=== PATIENT | female | born 1990 | race Caucasian/White ===

== ENCOUNTER → 2016-09-20 | Outpatient (REF) | payer OTHER | END | disposition home or self-care (01) | LOC: M LAB REF 11:55 | PROVIDERS: ATTEND Physician Assistant | DX: R30.0 Dysuria (principal) ==

== ENCOUNTER → 2019-01-03 | Outpatient (REF) | payer OTHER | LOC: M LAB REF 12:51 | PROVIDERS: ATTEND Advanced Practice Midwife | DX: O09.212 Supervision of pregnancy with history of pre-term labor, second trimester (principal); Z3A.00 Weeks of gestation of pregnancy not specified ==

== ENCOUNTER → 2019-04-07 | Outpatient (CLI) | payer OTHER ==
[~2019-04-07] VITALS: Ht 157.5 cm; Wt 85.6 kg
[~2019-04-07] MED LIST: ACET-683 PO; IBUP80TA PO; LEVO75TA4 PO; PNVTAB4 PO; [UNRECOGNIZED DRUG - CODE] IM
[2019-04-07 12:53] VITALS: BP 105/67
--- NOTE | 2019-04-07 14:01 | IPN ---
DATE: 04/07/2019 Herminia is a 28-year-old, 9, para 2-2-4-4, at 31 weeks gestation, expected date of confinement (EDC) of 06/09/2019 based on first trimester ultrasound who presents to labor and delivery today with a report of vaginal bleeding at 0600. She reports approximately 5 cm in diameter and does report two small clots that were nickel sized when she got up to use the restroom following that. She denies any further vaginal bleeding. She denies leakage of fluid. She denies regular painful contractions. She does report increasing pelvic pressure. Her care was initiated at [facility] in the first trimester. course complicated by a history of gestational hypertension, history of PPROM with two prior deliveries. She has been on [employer] since week 16. She does give the injections to herself at home. She is hypothyroid in which she has been noncompliant with her levothyroxine prescription not taking as instructed as well as a history of a precipitous delivery en route to the hospital. OBSTETRICAL HISTORY: November 2007 - 42 weeks gestation, 6 pounds 15 ounces female, vaginal delivery, uncomplicated. January 2011 - 40 and 5/7 weeks, 7 pounds 8 ounces female, vaginal delivery, uncomplicated. 2011 - 12 week miscarriage with a dilation and curettage (D and C). June 2013 - 35 and 6/7 weeks, 4 pounds 15 ounces female, with PPROM and preeclampsia, vaginal delivery. 2013 - Two spontaneous miscarriages. 2014 - One spontaneous miscarriage. - June 2016 - 36 weeks gestation, 5 pounds 8 ounces female, vaginal delivery in the car en route to the hospital, preeclampsia. OBSTETRIC LABS: O+, antibody screen negative, rubella immune, VDRL nonreactive. Urine culture no growth. Hepatitis B surface antigen negative. HIV negative. Hepatitis C antibody nonreactive. Gonorrhea and chlamydia negative. First trimester pre-eclamptic profile normal. Gestational diabetic screening normal at 103. Her GBS is unknown at this time. Most recent TSH was elevated to 5.01. PAST MEDICAL HISTORY: Gestational hypertension, thyroid disease, Abnormal Pap smear, Childhood varicella. SURGERIES: Cyst removal behind the right ear, D and C. FAMILY HISTORY: Diabetes, hypertension and heart disease. SOCIAL HISTORY: The patient is single, however, there is a father of baby that is involved. She does present with a support person. She is a nonsmoker. Denies alcohol and drug use. No history of sexually transmitted infections. Denies history of abuse - physical, sexual and emotional. ALLERGIES: - IODINE - LATEX - ERYTHROMYCIN CURRENT MEDICATIONS: - levothyroxine - Keerthi - vitamin OBJECTIVE: Temperature 97.9, pulse 107, respirations 18, BP is 105/67. She is alert and oriented times three. She does not appear in any distress. heart rate is 140 with moderate variability, positive accelerations, no decelerations. There is no pattern of regular contractions. Sterile speculum exam noted. No vaginal bleeding in the vault. No vaginal bleeding from the cervical os. Noted increased mucus discharge. Sterile vaginal exam 1 cm dilated, thick, position high, no show with the exam. It is very posterior. Of note, there are several external hemorrhoids that appear engorged and could potentially have been the source of the bleeding she reports. ASSESSMENT: Intrauterine . heart rate category one. No vaginal bleeding. External hemorrhoids. PLAN: Discharge the patient to home. She is to keep her next scheduled visit. I did review signs and symptoms of labor, movement counts and access to care. I did review palliative measures for her external hemorrhoids and [id number] medications. The patient has had all of her questions answered and does agree with discharge.
== END ==
LOC: M LDO 12:35
PROVIDERS: ATTEND Advanced Practice Midwife
DX: O26.853 Spotting complicating pregnancy, third trimester (principal); O13.3 Gestational [pregnancy-induced] hypertension without significant proteinuria, third trimester; O99.283 Endocrine, nutritional and metabolic diseases complicating pregnancy, third trimester; E03.9 Hypothyroidism, unspecified; Z88.0 Allergy status to penicillin; Z88.1 Allergy status to other antibiotic agents; Z88.3 Allergy status to other anti-infective agents; Z91.040 Latex allergy status; Z3A.31 31 weeks gestation of pregnancy

== ENCOUNTER → 2019-04-23 | Outpatient (CLI) | payer OTHER ==
[~2019-04-23] MED LIST changes: -ACET-683 PO; -IBUP80TA PO
--- NOTE | 2019-04-23 13:23 | REP ---
OB ULTRASOUND: Real-time sonographic evaluation of the gravid uterus performed. There is a single living intrauterine gestation. The estimated gestational age is 33 weeks 2 days with EDC 06/09/2019. Today's measurements indicate appropriate growth. Biometry and Growth: BPD 81 mm = 32 weeks 5 days, 41st percentile HC 299 mm = 33 weeks 1 day, 47th percentile AC 293 mm = 33 weeks 2 days, 50th percentile FL 64 mm = 33 weeks 0 days, 46th percentile HC/AC ratio 1.02 within normal range. Estimated weight 2127 grams, 42nd percentile. SEEN/GROSSLY UNREMARKABLE Lateral ventricles No Posterior fossa No Upper lip Yes Four-chamber heart Yes LVOT Yes RVOT Yes Stomach Yes Cord insertion No Three vessel cord Yes Kidneys No Bladder Yes Spine No Cervical length: Closed and measures 4.2 cm in length. heart rate: 144 beats per minute. position: Vertex. Placenta: Anterior and grade 1 with no previa or abruption. Amniotic fluid: Within normal limits, MEILSSA 12.2 within normal range of 8.2 to 24.6. S/D ratio: 3.20 above the normal range of 2.0 to 3.0. RI: 0.69 within normal range of 0.59 to 0.75. Electronically Signed by Jose Galarza MD 04/24/2019 09:29 A
== END ==
LOC: M RAD 11:16
PROVIDERS: ATTEND Advanced Practice Midwife
DX: O42.913 Preterm premature rupture of membranes, unspecified as to length of time between rupture and onset of labor, third trimester (principal)

== ENCOUNTER 2019-05-01 12:29 | Inpatient (IN) | payer OTHER ==
[2019-05-01] VITALS (19 sets, daily range): BP systolic 90–127; BP diastolic 50–77
[~2019-05-01] VITALS: Ht 157.5 cm; Wt 87.0 kg
[2019-05-01 14:10] LABS: HEMATOCRIT 33.7 % (36.0-47.0); HEMOGLOBIN 10.9 g/dl (12.0-15.5); MEAN CORPUSCULAR HEMOGLOBIN 26.6 pg (27.0-33.0); MEAN CORPUSCULAR HGB CONC 32.3 g/dl (32.0-36.5); MEAN CORPUSCULAR VOLUME 82.2 fl (80.0-96.0); PLATELET COUNT, AUTOMATED 217 10^3/uL (150-450); WHITE BLOOD COUNT 8.2 10^3/uL (4.0-10.0)
--- NOTE | 2019-05-01 14:42 | HPE ---
DATE OF ADMISSION: 05/01/2019 CHIEF COMPLAINT: Leakage of fluid. HISTORY OF PRESENT ILLNESS: Herminia is a 28-year-old G9, P 2-2-0-4 who is presenting to labor and delivery today complaining of leakage of fluid that started at noon. She had a gush of clear fluid without blood and has continually leaking ever since. She is feeling baby move. She denies contractions but just says she is uncomfortable. Her last intercourse was 4 days ago. She initiated care of the first trimester and has been compliant. She had a suspected premature rupture of membranes at 31 weeks 2 days estimated gestational age with moderate amount of pooling of clear fluid noted with the sterile speculum exam and positive Nitrazine. She was transferred to [facility] where she received betamethasone and antibiotics. She was monitored at [place] where two exams noted no pooling, negative Nitrazine, and negative ferning. She was discharged on 04/17/2019. On 04/21/2019 she reported three large gushes of fluid in the office and was again noted to be Nitrazine negative without pooling in the vagina. Sterile vaginal exam at that time was 1 cm dilated, 75% effaced, -3 station. LABS: Blood type O+, antibody screen negative, rubella immune, VDRL nonreactive. Urine culture showed no growth. Hepatitis B surface antigen negative. HIV negative. Hepatitis C nonreactive. Chlamydia negative. Gonorrhea negative. Diabetes screen normal. GBS negative. Obstetrical ultrasound: Most recent shows a single intrauterine estimated weight 2127 grams, anterior placenta MELISSA 12.2 cm. BPP to 8/8 per [facility]. OBSTETRICAL HISTORY: 1. In November 2007, at 42 weeks estimated gestational age, she delivered a 6 pounds 15 ounces female via normal spontaneous vaginal delivery at [facility] 2. In January 2011 at 40 weeks 5 days. She delivered a 7 pounds 8 ounces female via normal spontaneous vaginal delivery at [facility]. 3. In 2011, she had a miscarriage of twins at 12 weeks estimated gestation with subsequent dilation and curettage. 4. In 2012, she delivered a 4 pound 15 ounces female at 35 weeks 6 days, estimated gestation via normal spontaneous vaginal delivery complicated by premature rupture of membranes (PPROM) and pre-eclampsia. 5. In 2013, she had a miscarriage at 5 weeks estimated gestational age. 6. In 2013, she again had a miscarriage at 6 weeks estimated gestational age. 7. In 2014, she had a miscarriage at 8 weeks estimated gestational age. 8. In 2016, she delivered a 5 pounds 8 ounces female via normal spontaneous vaginal delivery at 36 weeks estimated gestational age that was born in the vehicle on the way to the hospital and was complicated by pre-eclampsia. PAST MEDICAL HISTORY: Pre-eclampsia versus gestational hypertension. labor. Hypothyroidism. CURRENT MEDICATIONS: - levothyroxine 75 mcg - Keerthi 250 mg/mL - vitamins. PAST SURGICAL HISTORY: Dilation and curettage, cyst removal behind right ear. ALLERGIES: IODINE, LATEX, ERYTHROMYCIN. SOCIAL HISTORY: Patient denies tobacco, alcohol or illicit recreational drugs. PHYSICAL EXAMINATION: VITALS: Temperature 98.6, pulse 90 and regular, respiratory rate 16 and unlabored, blood pressure 121/65. ABDOMEN: Gravid, Ori maneuver shows baby is vertex, confirmed by a bedside sonogram, estimated weight 2500 grams. STERILE SPECULUM EXAM: Positive pooling, positive Valsalva, positive Nitrazine, negative ferning. STERILE VAGINAL EXAM: 2 cm dilated, 75% effaced, -2 station. Sonogram: MELISSA of 4.9. heart rate: 135 beats per minute. Moderate variability, excels no decelerations, category 1 tracing. Britt: No contractions. ASSESSMENT AND PLAN: The 28-year-old G9, P 4 presenting to labor and delivery for rupture of membranes. Admit to labor delivery with routine labs and orders. She is beta complete, GBS negative. She has made some cervical change. status reassuring. Anticipate normal spontaneous vaginal delivery, anesthesia and consultations as needed. GME ATTESTATION GME ATTESTATION My faculty preceptor for this patient encounter was physically present during the encounter and was fully available. All aspects of the patient interview, examination, medical decision making process, and medical care plan development were reviewed and approved by the faculty preceptor. The faculty preceptor is aware and concurs with the plan as stated in the body of this note and will attest to such by his/her cosignature. ROSHNI
[2019-05-01] MEDS ORDERED: SLF 3 ML SYR IV PRN (16:15)
[2019-05-01] MEDS ORDERED: LR 1,000 ML IV SCH (17:35)
[2019-05-01] MEDS ORDERED: OXYTOCIN 30 UNITS IN 0.9% NaCl 500ML IV BAG (J2590) As Ordered ONE (17:40)
[2019-05-01] MEDS ORDERED: OXYTOCIN DRIP 30 UNITS in APPROPRIATE DILUENT 1 EA IV SCH (17:45)
[2019-05-01] MEDS ORDERED: SLF 3 ML SYR IV SCH (22:00)
[2019-05-01] MEDS ORDERED: PROMETHAZINE INJ 25 MG/ML VIAL (J2550) As Ordered ONE (23:40)
[2019-05-01] MEDS ORDERED: BUTORPHANOL 2 MG/ML INJ (J0595) As Ordered ONE (23:40)
[2019-05-01] MEDS ORDERED: BUTORPHANOL 2 MG/ML INJ (J0595) IV ONE (23:45)
[2019-05-01] MEDS ORDERED: PROMETHAZINE INJ 25 MG/ML VIAL (J2550) IV PRN (23:45)
[2019-05-02] VITALS (9 sets, daily range): BP systolic 96–129; BP diastolic 54–74
[2019-05-02] MEDS ORDERED: OXYTOCIN DRIP 30 UNITS in APPROPRIATE DILUENT 1 EA IV SCH (00:59)
[2019-05-02] MEDS ORDERED: IBUPROFEN 800 MG TAB PO PRN (01:00)
[2019-05-02] MEDS ORDERED: ANUSOL HC CREAM 30GM TOP PRN (01:00)
[2019-05-02] MEDS ORDERED: MOM 30ML SUSPENSION UDC PO PRN (01:00)
[2019-05-02] MEDS ORDERED: ACETAMINOPHEN TAB 650MG DOSE (2X325MG) PO PRN (01:00)
[2019-05-02] MEDS ORDERED: IBUPROFEN 600 MG TAB PO PRN (01:00)
[2019-05-02] MEDS ORDERED: DIBUCAINE 1% OINTMENT 30GM TOP PRN (01:00)
[2019-05-02] MEDS ORDERED: MEASLES,MUMPS,RUBELLA VACCINE INJ (MMR-II) (90707) SC SCH (01:00)
[2019-05-02] MEDS ORDERED: DOCUSATE SODIUM 100 MG CAP PO PRN (01:00)
[2019-05-02] MEDS ORDERED: ONDANSETRON 4MG/2ML VIAL (J2405) IV PRN (01:00)
[2019-05-02] MEDS ORDERED: METHYLERGONOVINE MALEATE 0.2 MG TAB PO PRN (01:00)
[2019-05-02] MEDS ORDERED: RHOGAM 300 MCG (1500 IU) INJ (J2790) IM SCH (01:00)
--- NOTE | 2019-05-02 04:52 | DN ---
DATE: 05/02/2019 TIME OF : 43 GENDER: Female APGARS: 4 and 7 WEIGHT: 4 pounds, 13 ounces, 2180 grams ANESTHESIA: None LACERATIONS: None. DELIVERY NOTE: On May 02, 1019 at 0044, Ms. Bryant, a 28-year-old, 9, now para 5, had a delivery at 34 weeks of a live born female , Apgars 4 and 7, weight was 4 pounds, 13 ounces, 2180 grams. I was called into her room for delivery; at which point, I entered the room with had already delivered. The patient continued to push, delivering the shoulders. was handed to mom with a good cry. Cord was clamped x2, was cut by the father of the baby under my direction. Placenta was then delivered grossly intact. A premixed bag of 500 mL of normal saline with 30 units of Pitocin was bolused along with uterine massage. The uterus was firm. On inspection, the cervix, vagina and perineum were grossly intact. Mom and baby recovering in stable condition. ROSHNI
[2019-05-02] MEDS: PRENATAL VITAMINS CHEWABLE TABLET PO SCH (10:19)
[2019-05-02] MEDS: ACETAMINOPHEN 500 MG TAB PO PRN (18:45)
--- NOTE | 2019-05-03 06:32 | IPNPDOC ---
Text Note Date of Service The patient was seen on 05/03/19. NOTE Day 1 S/p ; uncomplicated S: pain well controlled, lochia and bleeding decreasing, voiding spontaneously, ambulating without assistance, tolerating regular diet. Breast feeding. O: vitals stable Heart: RRR, no murmurs Lungs: CTA BL Abd: Fundus firm at U-2 Ext: no edema, nontender, negative Rambo's bilaterally A/P: 28 yo G9 now P5. day 1 s/p . Hemodynamically stable, afebrile, good pain control. Recovering well. -Routine care and advancement. -Anticipate discharge tomorrow VS,Fishbone, I+O VS, Fishbone, I+O Vital Signs Date Time Temp Pulse Resp B/P (MAP) Pulse Ox O2 Delivery O2 Flow Rate FiO2 05/02/19 18:44 98.0 80 20 128/70 (89) 95 GME ATTESTATION GME ATTESTATION My faculty preceptor for this patient encounter was physically present during the encounter and was fully available. All aspects of the patient interview, examination, medical decision making process, and medical care plan development were reviewed and approved by the faculty preceptor. The faculty preceptor is aware and concurs with the plan as stated in the body of this note and will attest to such by his/her cosignature. ALIE IRAHETA DO May 03, 2019 06:31
[2019-05-03] MEDS: PRENATAL VITAMINS CHEWABLE TABLET PO SCH (08:57)
[2019-05-03 10:13] VITALS: BP 113/65
[2019-05-03] MEDS: ACETAMINOPHEN 500 MG TAB PO PRN (15:46)
[2019-05-03 18:11] VITALS: BP 113/77
[2019-05-04 06:00] VITALS: BP 121/73
[2019-05-04] MEDS ORDERED: IBUP80TA PO (08:47)
[2019-05-04] MEDS ORDERED: ACET-683 PO (08:47)
[2019-05-04] MEDS: PRENATAL VITAMINS CHEWABLE TABLET PO SCH (10:53)
== END 2019-05-04 12:33 | disposition home or self-care (01) | DRG 560 ==
LOC: M LDO 12:29 → M LDI 12:37 → M OBS 05-02 03:16
PROVIDERS: ADMIT Obstetrics & Gynecology; ATTEND Obstetrics & Gynecology
PROC: 10E0XZZ Delivery of Products of Conception, External Approach (ICD-10-PCS; principal; 2019-05-02)
DX: O42.013 Preterm premature rupture of membranes, onset of labor within 24 hours of rupture, third trimester (principal); Z3A.34 34 weeks gestation of pregnancy; Z37.0 Single live birth; O99.284 Endocrine, nutritional and metabolic diseases complicating childbirth; E03.9 Hypothyroidism, unspecified

== ENCOUNTER 2020-06-06 14:55 | Inpatient (IN) | payer OTHER ==
[2020-06-06] VITALS (12 sets, daily range): BP systolic 108–175; BP diastolic 55–103
[~2020-06-06] VITALS: Ht 157.5 cm; Wt 85.4 kg
[~2020-06-06 14:55] MED LIST changes: +ACET-683 PO; +IBUP80TA PO
[2020-06-06] MEDS ORDERED: LACTATED RINGER'S 1000 ML IV STA (15:14)
[2020-06-06] MEDS ORDERED: AMPICILLIN SOD 2 GM in APPROPRIATE DILUENT 20 ML IV STA (15:14)
[2020-06-06] MEDS ORDERED: OXYTOCIN DRIP 30 UNITS in IV 1 EA IV SCH ×2 (15:15→18:51)
[2020-06-06] MEDS ORDERED: LR 1,000 ML IV SCH (15:30)
--- NOTE | 2020-06-06 15:49 | HPEPDOC ---
Obstetrical History & Physical General Date of Admission Jun 06, 2020 at 14:55 History of Present Illness Patient complains of large loss of clear fluid around 1140 this AM. No VB or uc tx. +FM. Chief Complaint: LOF, pre-term Information Provided By: Patient, RN/MD Age: 29 : 9 Term: 2 Pre-term: 3 Abortions: 3 Livin Care Care: Good Care Dating Final EDC: Jul 12, 2020 Final EDC by: LMP, 1st trimester (US) Weeks + Days: 34.5 Antepartum Course Diagnos(e)s 1. History of multiple PTB (34, 36, 36); took Keerthi during this . 2. Steroid complete at 33 weeks (threatened PTL) 3. Grand multip; 5 vaginal deliveries. Most recently in 04/2019 Past Medical History Past Obstetrical History #1: Gestation: 41 Type of Delivery: Spontaneous Vaginal Del. (11/2007) Sex of : Female Complications: Yes (Meconium) Past Obstetrical History #2: Gestation: 41 Type of Delivery: Spontaneous Vaginal Del. (01/2011) Sex of Infant: Female Complications: Yes (Meconium) Past Obstetrical History #3: Gestation: 11 (06/2012) Complications: No (incomplete SAB, D&C) Past Obstetrical History #4: Gestation: 36 Type of Delivery: Spontaneous Vaginal Del. (06/2013) Sex of Infant: Female Complications: Yes (PPROM) Past Obstetrical History #5: Gestation: 4 (no date given) Complications: No (SAB) Past Obstetrical History #6: Gestation: 8 (no date give) Complications: No (SAB) Past Obstetrical History #7: Gestation: 36 Type of Delivery: Spontaneous Vaginal Del. (06/2016) Sex of Infant: Female Complications: Yes (PPROM, precipitous delivery) Past Obstetrical History #8: Gestation: 34 Type of Delivery: Spontaneous Vaginal Del. (04/2019) Sex of Infant: Female Complications: Yes (PPROM) MOTHER SUPERIOR History: Human papillomavirus(HPV) Past Medical History Medical History Anemia Gestational HTN in previous ? (no GHTN during current ) Surgical History: Dilatation and Curettage (2011) Family History Significant Family History: Diabetes, Hypertension, Vascular disease Social History Marital Status: Single * Smoker: non-smoker Alcohol: Denies Drugs: denies Abuse Violence Screening Have you been hit/kicked/slapp: No Have you been sexually assault: No Allergies Coded Allergies: erythromycin base (Verified Allergy, Intermediate, HIVES, 04/09/19) iodine (Verified Allergy, Intermediate, SKIN RAW, 05/01/19) latex (Verified Allergy, Intermediate, RASH,LIPS TINGLE WITH BALLOONS, 04/07/19) Medications No Active Prescriptions or Reported Meds Physical Examination Physical Examination GENERAL: Alert and oriented times three. BREAST: . ABDOMEN: Gravid and non-tender to touch. FETUS: Is vertex (VTX) by sterile vaginal examination (SVE), fetus is vertex (VTX) by Ori. HEART RATE: Regular rate and rhythm. LUNGS: Clear to auscultation (CTA). EXTREMITIES: No edema. No clonus. Deep tendon reflexes (DTRs) + Pertinent Laboratoy Data Blood Type: O+ RBC Antibody Screen: Negative HIV: Negative Hepatitis B: Negative Hepatitis C: Negative Rapid Plasma Reagin: Immune Rubella: Immune Varicella: Immune Chlamydia/Gonorrhea: Negative Group B Streptococcus: Unknown Glucose Tolerance Test: 108 Anatomy Ultrasound Ultrasound Date: Feb 16, 2020 Normal Anatomy: Yes Placenta Previa: No Steroid Therapy Steroid Therapy: Yes (completed last week) Vaginal Examination Dilation: 1cm Effacement: 50% Station: -3 Cervical Consistency: Medium Cervical Position: Posterior Presentation: Cephalic presentation Position: Vertex (occiput) Assessment Heart Rate (FHR): 130 Variability: Moderate Accelerations: Positive Decelerations: None Tocometer Frequency: irregular Assessment/Plan Assessment 29yo at 34+6 weeks. PPROM. Reassuring maternal and status. Plan Admit and orient. Parallel Computing Software Engineer and consent. Proceed with active management / Pitocin IOL. Continue GBS prophylaxis. Labor and Delivery Counseling NICU notified. Anticipate . NIA HEATH DO Jun 06, 2020 15:49
[2020-06-06 16:31] LABS: HEMATOCRIT 30.9 % (36.0-47.0); HEMOGLOBIN 9.9 g/dl (12.0-15.5); MEAN CORPUSCULAR HEMOGLOBIN 26.1 pg (27.0-33.0); MEAN CORPUSCULAR VOLUME 81.5 fl (80.0-96.0); PLATELET COUNT, AUTOMATED 265 10^3/uL (150-450); RED BLOOD COUNT 3.79 10^6/uL (4.00-5.40); WHITE BLOOD COUNT 18.3 10^3/uL (4.0-10.0)
[2020-06-06] MEDS ORDERED: AMPICILLIN SOD 1 GM in APPROPRIATE DILUENT 10 ML IV SCH (18:00)
[2020-06-06] MEDS ORDERED: AMPICILLIN SOD 1 GM in D5W MINI-BAG PLUS 50 ML IV SCH (18:00)
[2020-06-06] MEDS ORDERED: FENTANYL 2MCG/ML ROPIVACAINE 0.2% IN 0.9% NACL 100ML IVBAG As Ordered ONE (18:02)
--- NOTE | 2020-06-06 18:08 | IPNPDOC ---
Obstetrical Progress Note Date of Service Jun 06, 2020 Subjective Pt feeling uncomfortable with contractions. She is requesting an epidural. Assessment Heart Rate (FHR): 145 Variability: Moderate Decelerations: Late Heart Rate Tracing: Category II Tocometer Frequency: every 3-7 min. (Pitocin shut off with the most recent late deceleration) Sterile Vaginal Examination Dilation: 5 cm Effacement (%): 50% Station: -3 Cervical Consistency: Soft Cervical Position: Posterior Postion/Presentation: Cephalic presentation Assessment and Plan Age: 29 : 9 Livin EGA at Admission: 34.6 Additional Comments Anesthesia notified of patient's request for an epidural. Keep Pitocin off for now until FHR improves to Cat I NIA HEATH DO Jun 06, 2020 18:08
[2020-06-06] MEDS ORDERED: REFRIGERATOR IV KEYS XX PRN (18:35)
[2020-06-06] MEDS ORDERED: EPIDURAL/PCA KEYS XX PRN (18:35)
[2020-06-06] MEDS ORDERED: NALOXONE INJ 0.4MG/1ML VIAL (J2310 PER 1MG) IV PRN (18:35)
[2020-06-06] MEDS ORDERED: ONDANSETRON 4MG/2ML VIAL IV PRN ×2 (18:35→19:00)
[2020-06-06] MEDS ORDERED: EPIDURAL COMMENT XX SCH (18:35)
[2020-06-06] MEDS ORDERED: FENTANYL/ROPIVACAINE/NACL BAG 100 ML EPIDURAL SCH (18:35)
[2020-06-06] MEDS ORDERED: ePHEDrine SULFATE 25 MG/5 ML(5MG/ML) SYRINGE IV PRN (18:35)
[2020-06-06] MEDS ORDERED: diphenhydrAMINE 50MG/ML VIAL (J1200) IV PRN (18:35)
--- NOTE | 2020-06-06 18:57 | DNPDOC ---
[facility] Delivery Note Delivery Note DATE OF DELIVERY: 06/06/2020 TIME OF DELIVERY: 1839 Spontaneous vaginal delivery. OVERHEAD CLEANER: Dr. Shun Grubbs DO FACOG ANESTHESIA: Epidural. LACERATION: None ESTIMATED BLOOD LOSS: 200 mL. FINDINGS: 4 pound 15 ounce (2230g) male infant, Score, 8 and 9. DELIVERY SUMMARY: The active phase and second stage of labor progressed in normal fashion.. She received Pitocin augmentation throughout her labor course. The head delivered in the ROCAEL position, and restituted LOT. No nuchal cord was noted. The anterior shoulder delivered with gentle downward guidance and the remainder of the body delivered with ease. The baby was placed on the patient's chest. NICU staff present at delivery. Delayed cord clamping occurred for approximately 1 minute. The cord was then doubly clamped and cut. IV Pitocin was bolused to actively manage the third stage of labor. The placenta delivered intact without any difficulty within 10 minutes of delivery. The uterine fundus was noted to be firm and 2 cm below the umbilicus. The cervix, vagina, vulva and perineum were inspected. Excellent hemostasis was noted. Sponge, needle and instrument counts were correct per protocol. DO GLADIS Minor JONATHAN R. DO Jun 06, 2020 18:57
[2020-06-06] MEDS ORDERED: DIBUCAINE 1% OINTMENT 30GM TOP PRN (19:00)
[2020-06-06] MEDS ORDERED: PROMETHAZINE 25 MG TAB PO PRN (19:00)
[2020-06-06] MEDS ORDERED: MEASLES,MUMPS,RUBELLA VACCINE INJ (MMR-II) (90707) SC SCH (19:00)
[2020-06-06] MEDS ORDERED: DOCUSATE SODIUM 100 MG CAP PO PRN (19:00)
[2020-06-06] MEDS ORDERED: RHOGAM 300 MCG (1500 IU) INJ (J2790) IM SCH (19:00)
[2020-06-06] MEDS ORDERED: ACETAMINOPHEN TAB 650MG DOSE (2X325MG) PO PRN (19:00)
[2020-06-06] MEDS ORDERED: IBUPROFEN 600MG TAB PO PRN (19:00)
[2020-06-06 19:44] LABS: CORD GAS ABE V -3.1; CORD GAS HCO3 A 24.6 MEQ/L; CORD GAS HCO3 V 21.6 MEQ/L; CORD GAS O2 SAT A 79.3 %; CORD GAS O2 SAT V 92.1 %; CORD GAS PCO2 A 53.4 mmHg; CORD GAS PCO2 V 38.1 mmHg; CORD GAS PH A 7.282 UNITS; CORD GAS PH V 7.372 UNITS; CORD GAS SBC A 21.5 MEQ/L; CORD GAS SBC V 21.8 MEQ/L; CORD GAS TCO2 A 26.3 MEQ/L; CORD GAS TCO2 V 22.8 MEQ/L
[2020-06-06 20:33] LABS: AMPHETAMINES URINE REFLEX NEGATIVE (NEGATIVE); BARBITURATES URINE REFLEX NEGATIVE (NEGATIVE); BENZODIAZEPINES URINE REFLEX NEGATIVE (NEGATIVE); COCAINE METABOLITE URINE REFLE NEGATIVE (NEGATIVE); METHADONE URINE REFLEX NEGATIVE (NEGATIVE); OPIATES URINE REFLEX NEGATIVE (NEGATIVE); PHENCYCLIDINE URINE REFLEX NEGATIVE (NEGATIVE)
[2020-06-07] MEDS: IBUPROFEN 800 MG TAB PO PRN ×3 (01:47→17:45)
[2020-06-07 05:23] VITALS: BP 118/54
--- NOTE | 2020-06-07 08:15 | IPNPDOC ---
Progress Note Date of Service: Jun 07, 2020 Progress Note SUBJECT: Status post . Baby is doing well in the NICU. She has been ambulating, voiding spontaneously without issue and tolerating regular diet. Lochia decreasing/minimal. Patient is ambulating well. OBJECTIVE: VITAL SIGNS: Within normal limits, afebrile. Alert and oriented times three. Abdomen: Fundus firm at U-2. Soft, NTTP. ASSESSMENT: Status post uncomplicated spontaneous vaginal delivery. Vitals within normal limits, afebrile, hemodynamically stable with no evidence of infection. PLAN: Discharge to home tomorrow Tylenol and Motrin for pain. Routine instructions/precautions reviewed. Routine PP visit in 6 weeks in clinic. VS, I&O, 24H, Fishbone Vital Signs/I&O Vital Signs Date Time Temp Pulse Resp B/P (MAP) Pulse Ox O2 Delivery O2 Flow Rate FiO2 06/07/20 05:23 96.2 94 16 118/54 (75) 97 Room Air I&O- Last 24 Hours up to 6 AM 06/07/20 05:59 Intake Total 51.7 ml Output Total 400 ml Balance -348.3 ml Laboratory Data 24H LABS Laboratory Tests 2 06/06/20 15:19: Serology Scanned Report Hepatitis B Testing 06/06/20 16:27: Nucleated Red Blood Cells % (auto) 0.0 06/06/20 18:50: Cord Arterial Blood pH 7.282, Cord Arterial Blood PCO2 53.4, Cord Arterial Blood PO2 37.0, Cord Arterial Blood HCO3 24.6, Cord Arterial Blood Total CO2 26.3, Cord Arterial Blood Base Excess -3.0, Cord Arterial Base Excess (Standard 21.5, Cord Arterial Bld Oxygen Saturation 79.3, Cord Venous Blood pH 7.372, Cord Venous Blood PCO2 38.1, Cord Venous Blood PO2 47.0, Cord Venous Blood HCO3 21.6, Cord Venous Blood Total CO2 22.8, Cord Venous Base Excess (Actual) -3.1, Cord Venous Base Excess (Standard) 21.8, Cord Venous Blood Oxygen Saturation 92.1 06/06/20 19:54: Urine Opiates Screen NEGATIVE, Urine Methadone Screen NEGATIVE, Urine Barbiturates Screen NEGATIVE, Urine Phencyclidine Screen NEGATIVE, Urine Am phetamines Screen NEGATIVE, Urine Benzodiazepines Screen NEGATIVE, Urine Cocaine Metabolite Screen NEGATIVE CBC/BMP Laboratory Tests 06/06/20 16:27 NIA HEATH DO Jun 07, 2020 08:15
[2020-06-07] MEDS: ACETAMINOPHEN 500 MG TAB PO PRN ×2 (08:30→17:46)
[2020-06-07 08:36] LABS: CANNABINOIDS URINE REFLEX PENDING CONFIRMATION (NEGATIVE)
[2020-06-07] MEDS: PRENATAL VITAMINS CHEWABLE TABLET PO SCH (10:21)
[2020-06-07 17:45] VITALS: BP 119/63
[2020-06-08] MEDS ORDERED: ACET-683 PO (05:42)
[2020-06-08] MEDS ORDERED: IBUP80TA PO (05:42)
[2020-06-08 06:00] VITALS: BP 130/75
--- NOTE | 2020-06-08 06:00 | IPNPDOC ---
Progress Note Date of Service: Jun 08, 2020 Day#: 2 Progress Note SUBJECT: Herminia is a 29-year-old 9 now Para 2-4-3-6 status post uncompl icated spontaneous vaginal delivery at 34-6/7 weeks. She was beta complete. She has been ambulating, voiding spontaneously without issue and tolerating regular diet. and pumping without issue. Reports small lochia. Pain well controlled with Tylenol and Motrin. Voiding and stooling without difficulty. OBJECTIVE: VITAL SIGNS: Within normal limits, afebrile, normotensive. Alert and oriented times three. Breath sounds clear to auscultation. Abdomen: Fundus firm at U-2. Soft, NTTP. Minimal lochia. ASSESSMENT: Day 2 PLAN: 1. Discharge to home today. 2. Tylenol and Motrin for pain. Scripts sent to pharmacy. 3. Encourage breast feeding and ambulation. 4. Desires BTL. 5. Routine PP visit in 6 weeks in clinic. 6. Discussed return precautions at length. VS, I&O, 24H, Fishbone Vital Signs/I&O Vital Signs Date Time Temp Pulse Resp B/P (MAP) Pulse Ox O2 Delivery O2 Flow Rate FiO2 06/07/20 17:45 98.3 79 16 119/63 (81) 98 Room Air CARLOS GASTELUM CNM Jun 08, 2020 06:00
[2020-06-08] MEDS: PRENATAL VITAMINS CHEWABLE TABLET PO SCH (10:04)
[2020-06-10 02:07] LABS: Cannabinoid Positive (.); GC Carboxy THC 17 ng/mL (Cutoff=10)
== END 2020-06-08 10:10 | disposition home or self-care (01) | DRG 560 ==
LOC: M LDI 14:55 → M OBS 20:37
PROVIDERS: ADMIT Obstetrics & Gynecology; ATTEND Obstetrics & Gynecology
PROC: 10E0XZZ Delivery of Products of Conception, External Approach (ICD-10-PCS; principal; 2020-06-06)
DX: O42.013 Preterm premature rupture of membranes, onset of labor within 24 hours of rupture, third trimester (principal); Z3A.34 34 weeks gestation of pregnancy; O99.02 Anemia complicating childbirth; D64.9 Anemia, unspecified; Z37.0 Single live birth